=== PATIENT | female | born 1935 | race Caucasian/White ===

== ENCOUNTER 2018-03-19 17:29 | Inpatient (IN) | payer MEDICARE, BC ==
[~2018-03-19] VITALS: Ht 157.5 cm; Wt 64.0 kg
--- NOTE | 2018-03-19 17:30 | NUR ---
BIB [facility]IVATE AMB [facility] FOR GEROPSYCH ADMISSION. PT AAOX1, VSS. DENIES CP, SOB, DIZZINESS, N/V/D @ THIS TIME. PT ANXIOUS BUT COOPERATIVE @ THIS MOMENT. WILL CONT TO MONITOR.
[2018-03-19] MEDS ORDERED: AMLO5TAB9 PO (18:00)
[2018-03-19] MEDS ORDERED: QUET25TA PO (18:00)
[2018-03-19] MEDS ORDERED: ATOR40TA PO (18:00)
[2018-03-19] MEDS ORDERED: diphenhydrAMINE HCL 50 MG/ML VIAL IM ONE (18:30)
[2018-03-19] MEDS ORDERED: HALOPERIDOL LACTATE INJ 5 MG/ML VIAL IM ONE (18:30)
[2018-03-19] MEDS ORDERED: HALOPERIDOL LACTATE INJ 5 MG/ML VIAL ONE (18:44)
[2018-03-19] MEDS ORDERED: diphenhydrAMINE HCL 50 MG/ML VIAL ONE (18:44)
--- NOTE | 2018-03-19 19:10 | NUR ---
PT ANXIETY GETTING WORSE, SCREAMING. MEDICATED PER ERMD ORDER, PT ALBERTO WELL. FAMILY @ BS.
--- NOTE | 2018-03-19 19:30 | NUR ---
REPORT RECIEVED FROM LINDA FOR JOSHUA. Patient is resting comfortably in bed with eyes closed. Easily aroused. VSS. NAD. FAMILY AT BEDSIDE.
--- NOTE | 2018-03-19 20:26 | NUR ---
REPORT GIVEN TO ANJU FRANCE FOR JOSHUA.
[2018-03-19 20:35] VITALS: BP 158/86
--- NOTE | 2018-03-19 20:45 | NUR ---
GPS ADMISSION NOTE, RECEIVED PATIENT FROM [facility]. PATIENT ARRIVED ON THIS UNIT AT 2044 VIA STRETCHER WITH 1 BARK PRESS OPERATOR ESCORT. PATIENT ADMITTED ON A 5150 HOLD FOR GD DTO. PER HOLD PATIENT HAS BEEN INCREASINGLY CONFUSED, DISORGANIZED, DISORIENTED, AND PHYSICALLY AGGRESSIVE TOWARD PATIENT BOYFRIEND. PATIENT IS PREOCCUPIED WITH HER OWN THOUGHTS, HAS A POOR INSIGHT, AND IMPAIRED JUDGMENT. PATIENT HAS NO VIABLE PLAN FOR SELF-CARE. THE 5150 WAS REVIEWED AND THE DOCUMENTATION IN THE 5150 HOLD APPEARS TO REFLECT THE PRESENTATION OF THE PATIENT. UPON FACE TO FACE ASSESSMENT PATIENT IS CURRENTLY LYING IN BED AWAKE, HAS NO S/S OR COMPLAINTS OF PAIN. PATIENT IS DISPLAYING NO S/S OF APPARENT DISTRESS. PATIENT BREATHING IS UNLABORED WITH EQUAL RISE AND FALL OF THE CHEST. PATIENT IS ALERT AND ORIENTATED X 2 ON ROOM AIR. PATIENT ASSISTED WITH TURING AND REPOSITIONING Q2HR AND PRN FOR COMFORT AND CIRCULATION. PATIENT HAS NO NEEDS AT THIS TIME. PATIENT IS NOTED TO BEING ANXIOUS, DISHEVELED, DISORGANIZED, CONFUSED, COOPERATIVE, AND NEEDS REDIRECTION. PATIENT DENIES SUICIDE IDEATIONS AND HOMICIDAL IDEATIONS AT THIS TIME. PATIENT IS UNDER THE PSYCHIATRIC CARE OF DR. LAROSE AND THE MEDICAL CARE OF DR AVILA. PATIENT BELONGINGS WERE INVENTORIED AND CHECKED FOR CONTRABAND. ALL CONTRABAND REMOVED AND STORED IN PATIENT HALLWAY LOCKER. PATIENT ADVANCED DIRECTIVES PREFERENCE, IMMUNIZATIONS QUESTIONER, NECESSARY PAPERWORK, AND SKIN ASSESSMENT COMPLETED. PATIENT ORIENTATED TO ROOM, FLOOR, AND STAFF WITH ALL QUESTIONS ANSWERED. PATIENT EDUCATED ON THE USE OF THE CALL ESTRADA. PATIENT BED SIDE RAILS ARE UP X 2 FOR SAFETY. PATIENT BED IS LOCKED, LOW AND I WILL CONTINUE TO MONITOR THIS PATIENT Q 15 MIN WITH THE HELP OF STAFF TO MAINTAIN SAFETY.
[2018-03-19] MEDS ORDERED: MAGNESIUM HYDROXIDE 30 ML UDC PO PRN (21:00)
[2018-03-19] MEDS ORDERED: MAG HYDROX/AL HYDROX/SIMETH 30 ML UDC PO PRN (21:00)
[2018-03-20] MEDS: ACETAMINOPHEN 325 MG TABLET PO PRN (01:14)
--- NOTE | 2018-03-20 01:14 | NUR ---
GPS RN NOTE, PATIENT HAS A COMPLAINT OF A HEADACHE AT 2 OUT 10 ON THE PAIN SCALE AND IS REQUESTING TYLENOL AT THIS TIME. PATIENT VITAL SIGNS ARE STABLE. GAVE TYLENOL 650 MG PO Q6HR PRN ORDERED. WILL REASSESS PAIN AND I WILL CONTINUE TO MONITOR THIS PATIENT.
[2018-03-20 07:53] LABS: BASOPHILS % (AUTO) 0.2 % (0.0-2.0); EOSINOPHILS % (AUTO) 0.8 % (0.0-6.0); HEMATOCRIT 36 % (33-45); HEMOGLOBIN 12.1 g/dL (11.5-14.8); LYMPHOCYTES # (AUTO) 1.1 /CMM (0.8-4.8); LYMPHOCYTES % (AUTO) 16.1 % (20.0-44.0); MEAN CORPUSCULAR HGB CONC 34 g/dl (31.0-36.0); MEAN CORPUSCULAR VOLUME 103 fL (82-100); MONOCYTES # (AUTO) 0.8 /CMM (0.1-1.30); MONOCYTES % (AUTO) 12.1 % (2.0-12.0); NEUTROPHILS # (AUTO) 4.9 /CMM (1.8-8.9); NEUTROPHILS % (AUTO) 70.8 % (43.0-81.0); PLATELET COUNT (AUTO) 251 /CMM (150-450); RED BLOOD CELL COUNT(AUTO) 3.45 MIL/uL (4.0-5.2); WHITE BLOOD COUNT (AUTO) 6.9 K/uL (4.3-11.0)
[2018-03-20 08:02] VITALS: BP 125/84
[2018-03-20 08:06] LABS: CHOLESTEROL 187 mg/dL (<200); HDL CHOLESTEROL 79 mg/dL (40-60); LDL 101 mg/dL (0-99); TRIGLYCERIDES 65 mg/dL (30-150)
[2018-03-20] MEDS: AMLODIPINE BESYLATE 5 MG TABLET PO SCH (08:50)
[2018-03-20] MEDS: LORAZEPAM 0.5 MG TABLET PO PRN ×2 (08:51→16:43)
[2018-03-20 09:01] LABS: ALANINE AMINOTRANSFERASE 23 U/L (12-78); ALBUMIN 3.1 g/dL (3.4-5.0); ALKALINE PHOSPHATASE 67 U/L (46-116); ASPARTATE AMINOTRANSFERASE 25 U/L (15-37); BILIRUBIN,TOTAL 0.4 mg/dL (0.2-1.0); CARBON DIOXIDE 26 mmol/L (21-32); CHLORIDE 100 mmol/L (98-107); GLUCOSE 104 mg/dL (74-106); POTASSIUM 3.8 mmol/L (3.5-5.1); SODIUM SERUM 137 mmol/L (136-145); TOTAL PROTEIN, SERUM 6.7 g/dL (6.4-8.2); UREA NITROGEN, BLOOD 17 mg/dL (7-18)
[2018-03-20 16:10] VITALS: BP 142/70
[2018-03-20] MEDS: busPIRone 5 MG TABLET PO SCH (16:43)
--- NOTE | 2018-03-20 19:30 | NUR ---
GPS RN NOTE, RECEIVED PATIENT AWAKE AND IN BED, NO S/S OR COMPLAINTS OF PAIN AT THIS TIME. PATIENT IS DISPLAYING NO S/S OF APPARENT DISTRESS AT THIS TIME. PATIENT BREATHING IS UNLABORED WITH EQUAL RISE AND FALL OF THE CHEST. PATIENT IS ALERT AND ORIENTED X 1-2 ON ROOM AIR WITH A SPO2 OF 99%. PATIENT IS COMPLIANT WITH MEDICATION, COOPERATIVE, ANXIOUS, DISORGANIZED, CONFUSED, PARANOID, AND NEEDS REDIRECTION. PATIENT IS CONFUSED BUT DENIES SUICIDE IDEATIONS AND HOMICIDAL IDEATIONS AT THIS TIME. PATIENT ASSISTED WITH TURNING AND REPOSITIONING Q 2HRS AND PRN FOR COMFORT AND CIRCULATION. PATIENT HAS NO NEEDS AT THIS TIME. PATIENT EDUCATED ON THE USE OF THE CALL ESTRADA. PATIENT BED SIDE RAILS UP X 2 FOR SAFETY, BED IS LOCKED, LOW, AND I WILL CONTINUE TO MONITOR AND MAINTAIN SAFETY Q15 MIN WITH THE HELP OF STAFF.
[2018-03-20] MEDS ORDERED: MIRTAZAPINE 15 MG TABLET PO SCH (20:00)
[2018-03-20 20:29] VITALS: BP 135/67
[2018-03-20] MEDS: QUETIAPINE FUMARATE 25 MG TABLET PO SCH (21:18)
[2018-03-20] MEDS: ATORVASTATIN 40 MG TABLET PO SCH (21:23)
[2018-03-21 08:00] VITALS: BP 117/61
[2018-03-21] MEDS: busPIRone 5 MG TABLET PO SCH ×2 (09:11→17:24)
[2018-03-21] MEDS: AMLODIPINE BESYLATE 5 MG TABLET PO SCH (09:11)
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
[2018-03-21] MEDS: LORAZEPAM 0.5 MG TABLET PO PRN (14:38)
[2018-03-21 16:00] VITALS: BP 101/62
[2018-03-21 20:00] VITALS: BP 144/72
[2018-03-21] MEDS: QUETIAPINE FUMARATE 25 MG TABLET PO SCH ×2 (20:35→21:25)
[2018-03-21] MEDS: ATORVASTATIN 40 MG TABLET PO SCH (21:25)
[2018-03-21] MEDS: TEMAZEPAM 7.5 MG CAPSULE PO PRN (21:42)
[2018-03-22 08:00] VITALS: BP 127/69
[2018-03-22] MEDS: busPIRone 5 MG TABLET PO SCH ×3 (09:21→17:44)
[2018-03-22] MEDS: AMLODIPINE BESYLATE 5 MG TABLET PO SCH (09:22)
--- NOTE | 2018-03-22 09:27 | NUR ---
INITIAL DISCHARGE PLAN: Per daughter Tiana [phone], pt is unable to return home to [address] [place] [address] as pt lives alone and due to pts increase in confusion and rapid cognitive decline it is unsafe for pt to live alone and care for self. Daughter wishes for pt to be placed at a SNF near pts home. SW will help form a safe and proper discharge in collaboration with daughter and MD.
--- NOTE | 2018-03-22 09:54 | NUR ---
WOUND CARE CONSULT: PT PRESENTS WITH DRY ABRASIONS TO CHEST AND RT ARM, PRESENT ON ADMISSION. PT IS AMBULATORY AND CONTINENT. WILL SEE PRN. Addendum: 03/22/18 at 0955 by LUIS ALBERTO GUERRA WNDNU CURRENT EARL SCORE IS 22.
[2018-03-22] MEDS: ACETAMINOPHEN 325 MG TABLET PO PRN (13:08)
[2018-03-22 16:00] VITALS: BP 122/62
--- NOTE | 2018-03-22 16:16 | NUR ---
PACING THE HALLS ALL DAY,STEADY ON FEET,BUT CONFUSED.
--- NOTE | 2018-03-22 19:30 | NUR ---
GPS RN NOTE, RECEIVED PATIENT AWAKE AND IN BED, NO S/S OR COMPLAINTS OF PAIN AT THIS TIME. PATIENT IS DISPLAYING NO S/S OF APPARENT DISTRESS AT THIS TIME. PATIENT BREATHING IS UNLABORED WITH EQUAL RISE AND FALL OF THE CHEST. PATIENT IS ALERT AND ORIENTED X 1-2 ON ROOM AIR WITH A SPO2 OF 95%. PATIENT IS COMPLIANT WITH MEDICATION, COOPERATIVE, ANXIOUS, DISORGANIZED, CONFUSED, PARANOID, AND NEEDS REDIRECTION. PATIENT IS CONFUSED BUT DENIES SUICIDE IDEATIONS AND HOMICIDAL IDEATIONS AT THIS TIME. PATIENT ASSISTED WITH TURNING AND REPOSITIONING Q 2HRS AND PRN FOR COMFORT AND CIRCULATION. PATIENT HAS NO NEEDS AT THIS TIME. PATIENT EDUCATED ON THE USE OF THE CALL ESTRADA. PATIENT BED SIDE RAILS UP X 2 FOR SAFETY, BED IS LOCKED, LOW, AND I WILL CONTINUE TO MONITOR AND MAINTAIN SAFETY Q15 MIN WITH THE HELP OF STAFF.
[2018-03-22 20:00] VITALS: BP 120/66
[2018-03-22] MEDS: LORAZEPAM 0.5 MG TABLET PO PRN (21:05)
--- NOTE | 2018-03-22 21:05 | NUR ---
GPS RN NOTE, PATIENT HAS A COMPLAINT OF FEELING ANXIOUS AND IS REQUESTING ATIVAN AT THIS TIME. PATIENT VITAL SIGNS ARE STABLE. GAVE ATIVAN 0.5MG PO Q6HR PRN ORDERED. WILL REASSESS FOR ANXIETY AND I WILL CONTINUE TO MONITOR THIS PATIENT.
[2018-03-22] MEDS: ATORVASTATIN 40 MG TABLET PO SCH (22:07)
[2018-03-23 08:00] VITALS: BP 122/72
[2018-03-23] MEDS: AMLODIPINE BESYLATE 5 MG TABLET PO SCH (08:21)
[2018-03-23] MEDS: busPIRone 5 MG TABLET PO SCH ×3 (08:21→17:21)
--- NOTE | 2018-03-23 11:03 | NUR ---
BALDEV contacted pts daughter Tiana [phone] to discuss placement options and to inquire on the facilities BALDEV had recommended. Per daughter she has not had the time to visit the facilities but will visit on this present day. BALDEV will follow-up tomorrow 03/24/18.
[2018-03-23] MEDS: LORAZEPAM 0.5 MG TABLET PO PRN (13:03)
--- NOTE | 2018-03-23 14:56 | NUR ---
BALDEV faxed SNF referral to Dorothy, phlebotomy program coordinator at [facility] Address: [address] [place] [address] for review per pts daughter request.
[2018-03-23 16:00] VITALS: BP 136/71
[2018-03-23] MEDS: ACETAMINOPHEN 325 MG TABLET PO PRN (19:30)
[2018-03-23 20:12] VITALS: BP 132/70
[2018-03-23] MEDS: QUETIAPINE FUMARATE 25 MG TABLET PO SCH (20:51)
[2018-03-23] MEDS: ATORVASTATIN 40 MG TABLET PO SCH (21:12)
[2018-03-23] MEDS: TEMAZEPAM 7.5 MG CAPSULE PO PRN (21:32)
[2018-03-24 08:00] VITALS: BP 137/63
[2018-03-24] MEDS: busPIRone 5 MG TABLET PO SCH ×3 (09:05→16:31)
[2018-03-24] MEDS: AMLODIPINE BESYLATE 5 MG TABLET PO SCH (09:06)
--- NOTE | 2018-03-24 11:00 | NUR ---
BALDEV faxed SNF referral to admissions at [facility] Address: [address] [facility], [place] [address] for review.
--- NOTE | 2018-03-24 14:57 | NUR ---
UR NOTE: BALDEV received a call from Ange [phone] from [place] stating pt is part of the ACO (Accountable Care Organization) attached to Medicare. She said they advise but do not manage the case, however, she requested a clinical review. BALDEV faxed clinical review to .
[2018-03-24 16:00] VITALS: BP 145/99
--- NOTE | 2018-03-24 16:06 | NUR ---
UR NOTE: BALDEV received a call from Torrie [phone] case finisher at [facility] stating that pt is being followed by pts primary care physician Dr. Lazaro and due to pt being part of the ACO with [facility] she would need to be referred to a SNF contracted with [facility] ACO. Torrie stated that if no facilities within that network accepted pt, pt is still considered a MEDICARE pt and was able to be discharged to a non network facility. Torrie will fax BALDEV a list of contracted facilities and BALDEV will refer pt and contact daughter to explain her coverage.
--- NOTE | 2018-03-24 16:50 | NUR ---
PT. WANDERS TO DIFFERENT ROOMS, CONFUSED AND AWOL RISK AND KEEPS OPENING THE DOORS. PT. ON 1:1 FOR SAFETY.
--- NOTE | 2018-03-24 19:39 | NUR ---
RECEIVED AWAKE, ALERT, CONFUSED, AMBULATORY, UNSTEADY GAIT. UNKEMPT. 1:1 SITTER FOR SAFETY, S/P FALL 03/23/2017. WILL CONTINUE TO MONITOR Q 15 MINS. TO MAINTAIN SAFETY.
[2018-03-24 20:00] VITALS: BP 127/65
[2018-03-24] MEDS: LORAZEPAM 0.5 MG TABLET PO PRN (20:04)
--- NOTE | 2018-03-24 20:05 | NUR ---
C/O ANXIETY, LORAZEPAM 0.5 MG TAB PO GIVEN.
[2018-03-24] MEDS: ACETAMINOPHEN 325 MG TABLET PO PRN (20:08)
--- NOTE | 2018-03-24 20:09 | NUR ---
C/O ARTHERITIC PAIN, TYLENOL 650 MG TAB PO GIVEN.
[2018-03-24] MEDS: QUETIAPINE FUMARATE 25 MG TABLET PO SCH (20:10)
[2018-03-24] MEDS: ATORVASTATIN 40 MG TABLET PO SCH (22:04)
[2018-03-25 08:00] VITALS: BP 118/59
[2018-03-25] MEDS: busPIRone 5 MG TABLET PO SCH ×3 (08:49→16:31)
[2018-03-25] MEDS: AMLODIPINE BESYLATE 5 MG TABLET PO SCH (08:51)
--- NOTE | 2018-03-25 12:30 | NUR ---
UR NOTE: BALDEV faxed clinical review to addressed to Ange [phone] from [place] .
--- NOTE | 2018-03-25 15:12 | NUR ---
BALDEV contacted pts daughter Tiana [phone] to discuss placement options and to inquire on SNF tours. Daughter stated that she did not like [facility] and also stated that she did not visit [facility] due to her wanting pt to be placed at an Assisted Living/memory care facility. Daughter informed BALDEV that she visited [facility] Address: [address] , [place] [address] and [facility] Address: [address] [place] [address] and will bring Physicians Report this weekend. BALDEV stated that she would have hospitalist fill and sign physicians report and she would contact the facilities and fax report on Wednesday03/28/18. BALDEV will contact facilities and coordinate referral and discharge.
[2018-03-25 15:57] VITALS: BP 128/59
[2018-03-25 20:18] VITALS: BP 140/77
[2018-03-25] MEDS: QUETIAPINE FUMARATE 25 MG TABLET PO SCH (20:52)
[2018-03-25] MEDS: LORAZEPAM 0.5 MG TABLET PO PRN (20:52)
--- NOTE | 2018-03-25 20:52 | NUR ---
ATIVAN 0.5 MG TAB PO GIVEN FOR ANXIETY.
[2018-03-25] MEDS: ATORVASTATIN 40 MG TABLET PO SCH (21:12)
[2018-03-26 08:00] VITALS: BP 110/59
[2018-03-26] MEDS: AMLODIPINE BESYLATE 5 MG TABLET PO SCH (09:00)
[2018-03-26] MEDS: busPIRone 5 MG TABLET PO SCH ×3 (09:26→17:11)
[2018-03-26] MEDS: LORAZEPAM 0.5 MG TABLET PO PRN ×2 (14:15→20:00)
--- NOTE | 2018-03-26 14:22 | NUR ---
REPORT PER [place] PT. RESTLESS,GIVEN ATIVAN PO.
[2018-03-26 15:47] VITALS: BP 137/69
[2018-03-26] MEDS: QUETIAPINE FUMARATE 25 MG TABLET PO SCH ×2 (17:11→20:13)
[2018-03-26] MEDS: ACETAMINOPHEN 325 MG TABLET PO PRN (19:38)
--- NOTE | 2018-03-26 19:40 | NUR ---
c/o arthritic pain, tylenol 650 mg tab po given.
[2018-03-26 20:00] VITALS: BP 120/67
[2018-03-26] MEDS: ATORVASTATIN 40 MG TABLET PO SCH (21:14)
--- NOTE | 2018-03-26 22:25 | NUR ---
ATIVAN 0.5 MG TAB PO ADMINISTERED FOR ANXIETY, FIDGETY, UP AND ABOUT INSIDE HER ROOM. 1:1 SITTER AT THE BEDSIDE. Addendum: 03/27/18 at 0232 by SITA COY RN ATIVAN 0.5 MG TAB PO WAS ACTUALLY GIVEN AT 1999
[2018-03-27] MEDS: LORAZEPAM 0.5 MG TABLET PO PRN (02:29)
--- NOTE | 2018-03-27 02:32 | NUR ---
0229: ANOTHER DOSE OF ATIVAN WAS GIVEN 0.5 MG TAB PO. PATIENT VERY ANXIOUS, TALKS TO HERSELF, CONFUSED.
[2018-03-27 08:00] VITALS: BP 147/73
[2018-03-27] MEDS: busPIRone 5 MG TABLET PO SCH ×3 (08:38→17:39)
[2018-03-27] MEDS: QUETIAPINE FUMARATE 25 MG TABLET PO SCH ×3 (08:38→21:06)
[2018-03-27] MEDS: AMLODIPINE BESYLATE 5 MG TABLET PO SCH (08:38)
[2018-03-27 16:00] VITALS: BP 126/64
[2018-03-27 20:02] VITALS: BP 122/66
[2018-03-27] MEDS: ATORVASTATIN 40 MG TABLET PO SCH (21:05)
[2018-03-28 08:00] VITALS: BP 118/50
[2018-03-28] MEDS: busPIRone 5 MG TABLET PO SCH ×3 (08:14→16:24)
[2018-03-28] MEDS: AMLODIPINE BESYLATE 5 MG TABLET PO SCH (08:15)
[2018-03-28] MEDS: QUETIAPINE FUMARATE 25 MG TABLET PO SCH ×3 (08:15→21:37)
--- NOTE | 2018-03-28 09:42 | NUR ---
UR NOTE: BALDEV faxed clinical review to addressed to Ange [phone] from [place] .
--- NOTE | 2018-03-28 12:08 | NUR ---
SW contacted [facility] Address: [address] [facility], [place] [address] to request assessment for pt. Per talent acquisition administrator a nurse will be coming on this present day to assess pt.
--- NOTE | 2018-03-28 13:00 | NUR ---
Dee, nurse at [facility] Address: [address], [place] [address] came to assess pt on this present day.
[2018-03-28 16:00] VITALS: BP 126/71
[2018-03-28] MEDS: LORAZEPAM 0.5 MG TABLET PO PRN (17:19)
--- NOTE | 2018-03-28 17:21 | NUR ---
GPS RN NOTE: ATIVAN 0.5 MG TAB PO GIVEN FOR ANXIETY.
[2018-03-28] MEDS: ACETAMINOPHEN 325 MG TABLET PO PRN (19:28)
[2018-03-28 19:44] VITALS: BP 133/67
[2018-03-28] MEDS: ATORVASTATIN 40 MG TABLET PO SCH (21:36)
[2018-03-29 08:00] VITALS: BP 128/66
[2018-03-29 08:41] VITALS: BP 128/66
[2018-03-29] MEDS: busPIRone 5 MG TABLET PO SCH ×3 (09:37→16:48)
[2018-03-29] MEDS: AMLODIPINE BESYLATE 5 MG TABLET PO SCH (09:37)
[2018-03-29] MEDS: QUETIAPINE FUMARATE 25 MG TABLET PO SCH ×3 (09:39→21:25)
--- NOTE | 2018-03-29 12:18 | NUR ---
BALDEV spoke with Amarilis, software licensing executive at [facility] Address: [address], [place] [address] to inform her pt is discharging tomorrow 03/30/18. Amarilis will return SW call with time of picker machine operator.
[2018-03-29] MEDS: LORAZEPAM 0.5 MG TABLET PO PRN (12:30)
--- NOTE | 2018-03-29 13:27 | NUR ---
BALDEV contacted Sandra, athlete marketing agent at [facility] Address: [address] [place] [address] to inform her pts discharge was pushed back to 03/31/18 due to physicians report not being signed and facility needing report before admitting pt.
--- NOTE | 2018-03-29 13:30 | NUR ---
SW contacted pts daughter Tiana [phone] to inform her pts discharge was pushed back to 03/31/18 due to physicians report not being signed and facility needing report before admitting pt. Daughter agreed and stated tomorrow 03/30/18 she was going to the facility to sign lease and give security deposit and first months rent.
[2018-03-29 15:55] VITALS: BP 132/78
[2018-03-29 20:08] VITALS: BP 132/74
[2018-03-29] MEDS: ATORVASTATIN 40 MG TABLET PO SCH (21:24)
[2018-03-29] MEDS: DIVALPROEX SODIUM 125 MG TABLET.DR PO SCH (21:24)
[2018-03-30 08:00] VITALS: BP 125/66
[2018-03-30] MEDS: QUETIAPINE FUMARATE 25 MG TABLET PO SCH ×3 (08:05→21:41)
[2018-03-30] MEDS: AMLODIPINE BESYLATE 5 MG TABLET PO SCH (08:05)
[2018-03-30] MEDS: DIVALPROEX SODIUM 125 MG TABLET.DR PO SCH ×2 (08:05→21:41)
--- NOTE | 2018-03-30 09:54 | NUR ---
GPS RN NOTE: PT NOTED PERINEUM AND SACRAL REDNESS , CLEAN ,PAT DRY APPLIED Z GUARD , MEPILEX, PT TURNED REPOSITION Q 2 HR .PT REFUSED PICTURES AT THIS TIME WILL INDORSE TO LUIZA BARCLAY RN. Addendum: 03/30/18 at 1739 by EMANUEL KHOURY RN CHART ON WRONG PT
--- NOTE | 2018-03-30 10:07 | NUR ---
BALDEV faxed 602 form and clinicals to Sandra product marketing executive at [facility] Address: [address] [place] [address] .
[2018-03-30] MEDS: LORAZEPAM 0.5 MG TABLET PO PRN (10:22)
--- NOTE | 2018-03-30 10:50 | NUR ---
GPS RN NOTE: ATIVAN 0.5 MG TAB PO GIVEN FOR ANXIETY.
--- NOTE | 2018-03-30 11:48 | NUR ---
UR NOTE: BALDEV faxed clinical review to addressed to Ange [phone] from [place].
[2018-03-30 16:00] VITALS: BP 114/69
[2018-03-30 20:00] VITALS: BP 144/79
[2018-03-30 20:10] VITALS: BP 144/79
[2018-03-30] MEDS: ATORVASTATIN 40 MG TABLET PO SCH (21:41)
[2018-03-31 08:00] VITALS: BP 131/75
[2018-03-31] MEDS: DIVALPROEX SODIUM 125 MG TABLET.DR PO SCH (08:53)
[2018-03-31] MEDS: AMLODIPINE BESYLATE 5 MG TABLET PO SCH (08:54)
[2018-03-31] MEDS: QUETIAPINE FUMARATE 25 MG TABLET PO SCH (08:54)
--- NOTE | 2018-03-31 10:45 | NUR ---
DR. LAROSE GAVE AN ORDER TO D/C HOLD AND D/C TO [facility] AND TO FOLLOW UP WITH PSYCH AND MEDICAL DOCTORS.
[2018-03-31] MEDS ORDERED: DIVALPROEX SODIUM 125 MG TABLET.DR PO SCH (13:00)
--- NOTE | 2018-03-31 14:40 | NUR ---
DISCHARGE NOTE: Pt will be discharged between 3:00-3:30pm via [facility] transport to [facility] [address] [place], [place] [address] . Pts daughter Tiana [phone] has been notified and agreed with discharge plan. Pts mood is anxious and confused with congruent affect. Pt denied suicidal/homicidal ideations and denied visual/auditory hallucinations. SW referred pts daughter to Psychiatrist: Dr. Luba [place] [address] [address] [phone] and she will schedule a follow up appointment with Tile Mason: Dr. Rona Del Real [address] [address] [phone]. The multidisciplinary exitcare form was done, printed, signed, and given to the patient.
--- NOTE | 2018-03-31 15:45 | NUR ---
GPS/RN-NOTES PATIENT WAS DISCHARGE TODAY TO [facility]. DR. LAROSE AND DR. KC AWARE AND AGREES WITH ORDERS. PATIENT DID NOT VERBALIZE SI/HI ,DENIES VISUAL /AUDITORY HALLUCINATIONS AT THE TIME OF DISCHARGE. ALL DISCHARGE PAPERS WAS SIGN BY THE PATIENT. 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
[2018-03-31 15:59] VITALS: BP 117/68
== END 2018-03-31 15:45 | DRG 885 ==
LOC: ER 17:39 → GPS 20:38
PROVIDERS: ADMIT Psychiatry & Neurology Psychosomatic Medicine; ATTEND Psychiatry & Neurology Psychosomatic Medicine
DX: F29 Unspecified psychosis not due to a substance or known physiological condition (principal); F01.50 Vascular dementia, unspecified severity, without behavioral disturbance, psychotic disturbance, mood disturbance, and anxiety; I10 Essential (primary) hypertension; E78.5 Hyperlipidemia, unspecified; F25.9 Schizoaffective disorder, unspecified; F41.9 Anxiety disorder, unspecified
CPT/HCPCS: 36415; 70450-TC; 71045-TC; 80053-TC; 80061-TC; 85025-TC; 87081-TC; J1200; J1630